=== PATIENT | male | born 1995 | race African-American/Black ===

== ENCOUNTER 2018-01-14 12:31 | Emergency (ER) | payer BC ==
[~2018-01-14] VITALS: Ht 172.7 cm; Wt 61.2 kg
[2018-01-14] MEDS ORDERED: Lidocaine 1% Plain 30 ml INJ ONE (13:00)
--- NOTE | 2018-01-14 13:45 | Emergency Room Report ---
History of Present Illness General Chief Complaint: Lower Extremity Injury Source: Patient Present Illness HPI 22-year-old male presents to the emergency department complaining of 7 out of 10 in severity localized pain, swelling and erythema to the medial aspect of the left great toe times several months. Patient states that he is had an ingrown toenail for several years however just recently started becoming a problem increasing infection for him. Patient denies fevers or chills denies streaking erythema. Reports pain is exacerbated upon walking or wearing tight shoes. Denies numbness tingling or loss of sensation or gross motor movements of the extremities, incontinence of bowel or bladder. Denies CP, Palpitations, LOC, AMS, dizziness, Changes in Vision, Sensation, paresthesias, or a sudden severe headache. Allergies: Coded Allergies: No Known Allergies (Unverified , 01/14/18) Patient History Past Medical History: see triage record Past Surgical History: none Pertinent Family History: none Immunizations: UTD Reviewed Nursing Documentation: PMH: Agreed, PSxH: Agreed Nursing Documentation-PMH Past Medical History: No Stated History Review of Systems All Other Systems: negative except mentioned in HPI Physical Exam Vital Signs Date Time Temp Pulse Resp B/P (MAP) Pulse Ox O2 Delivery O2 Flow Rate FiO2 01/14/18 12:45 97.9 67 18 115/61 99 Room Air 97.9 Sp02 EP Interpretation: reviewed, normal General Appearance: no apparent distress, alert, GCS 15, non-toxic Head: normocephalic, atraumatic Eyes: bilateral eye abnormal pupil ENT: hearing grossly normal, normal voice Neck: full range of motion Respiratory: lungs clear, normal breath sounds, speaking full sentences Cardiovascular #1: regular rate, rhythm, normal capillary refill Musculoskeletal: back normal, gait/station normal, normal range of motion, tender - TTP to medial cuticle line of the left great toe. notable ingrown toenail. erythema is noted. Neurologic: alert, oriented x3, responsive, motor strength/tone normal, sensory intact, speech normal, grossly normal Psychiatric: judgement/insight normal Skin: no rash, warm/dry, well hydrated, other - erythema and swelling medial cuticle line of the left great toe. Lymphatic: no adenopathy Procedures Additional Procedure Procedure Narrative Wedge resection procedure: - verbal permission was obtained. - extremity involved is the Left great toenail -5cc of Lidocaine 1% plain was injected in a digital block fashion, good anesthesia was obtained. - The extremity was Cleaned and draped in a sterile fashion - The mediolateral aspect of the nail was exposed and isolated from the nail bed. -Section of the lateral aspect of the nail was cut by sterile scissors. - bleeding was controlled with direct pressure. -Sterile dressing was applied. Pt. tolerated the procedure well, there were no complications. Medical Decision Making PA Attestation Dr. Rivas is my supervising Physician whom patient management has been discussed with. Diagnostic Impression: Primary Impression: Ingrown left big toenail ER Course 22-year-old male presents to the emergency department complaining of 7 out of 10 in severity localized pain, swelling and erythema to the medial aspect of the left great toe times several months. Patient states that he is had an ingrown toenail for several years however just recently started becoming a problem increasing infection for him. Patient denies fevers or chills denies streaking erythema. Reports pain is exacerbated upon walking or wearing tight shoes. Denies numbness tingling or loss of sensation or gross motor movements of the extremities, incontinence of bowel or bladder. Denies CP, Palpitations, LOC, AMS, dizziness, Changes in Vision, Sensation, paresthesias, or a sudden severe headache. Ddx considered but are not limited to cellulitis, paronychia, eponychia, ingrown toe nail, fracture, d/L, gout Vital signs: are WNL, pt. is afebrile H&PE are most consistent with ingrown left toe, infected ORDERS: none required at this time, the diagnosis is clinical ED INTERVENTIONS: -Nail Wedge resection of the left great toe nail. - Bacitracin DISCHARGE: At this time pt. is stable for d/c to home. Will provide printed patient care instructions, and any necessary prescriptions. Care plan and follow up instructions have been discussed with the patient prior to discharge. Last Vital Signs Date Time Temp Pulse Resp B/P (MAP) Pulse Ox O2 Delivery O2 Flow Rate FiO2 01/14/18 12:45 97.9 67 18 115/61 99 Room Air 97.9 Disposition: HOME, SELF-CARE Condition: Stable Scripts Bacitracin/Polymyxin B Sulfate (BACITRACIN-POLYMYXIN OINTMENT) 28.35 Gm Oint...g. 1 APPLIC TP BID, #28.3 GM Prov: Aliza Kim 01/14/18 Ibuprofen* (MOTRIN*) 600 Mg Tablet 600 MG ORAL THREE TIMES A DAY, #20 TAB 0 Refills Prov: Aliza Kim 01/14/18 Hydrocodone Bit/Acetaminophen 5-325* (NORCO 5-325*) 1 Each Tablet 1 TAB ORAL Q6H Y for For Pain, #6 TAB 0 Refills Prov: Aliza Kim 01/14/18 Clindamycin Hcl (CLINDAMYCIN HCL) 300 Mg Capsule 300 MG ORAL FOUR TIMES A DAY for 7 Days, #28 CAP Prov: Aliza Kim 01/14/18 Patient Instructions: Fingernail or Toenail Removal, Care After, Ingrown Toenail Additional Instructions: Take medications as directed. Follow up with a Primary Care Provider in 3-5 days, even if your symptoms have resolved. --Please review list of primary care clinics, if you do not already have a primary care provider Return sooner to ED if new symptoms occur, or current symptoms become worse. Do not drink alcohol, drive, or operate heavy machinery while taking [place] as this may cause drowsiness. - Please note that this Emergency Department Report was dictated using [employer] inserting machine operator technology software, occasionally this can lead to erroneous entry secondary to interpretation by the dictation equipment. Aliza Kim Jan 14, 2018 13:45
[2018-01-14] MEDS ORDERED: IBUPROFEN600 MG ORAL (14:26)
[2018-01-14] MEDS ORDERED: NORCO 5-325 TA1 EACH ORAL (14:26)
[2018-01-14] MEDS ORDERED: CLINDAMYCIN HC300 MG ORAL (14:26)
[2018-01-14] MEDS ORDERED: BACITRACIN-P28.35 GM TP (14:29)
[2018-01-14 18:56] VITALS: BP 115/61
== END 2018-01-14 15:00 | disposition home or self-care (01) ==
LOC: EDSEX 12:31 → EMR 13:22
DX: L60.0 Ingrowing nail (principal)
CPT/HCPCS: 99284; J2001